=== PATIENT | male | born 1965 | race Caucasian/White ===

== ENCOUNTER 2024-03-18 11:29 | Emergency (ER) | payer OTHER ==
[2024-03-18] MEDS ORDERED: MORPHINE 4 MG/ML SYR ONE (11:56)
[2024-03-18] MEDS ORDERED: ONDANSETRON 4 MG/2 ML VIAL ONE (11:56)
[2024-03-18] MEDS ORDERED: NA CHLORIDE 0.9% 1,000 ML ONE (11:56)
[2024-03-18 12:00] LABS: Absolute Eosinophils 0.1 K/uL (0-0.5); Absolute Lymphocytes (CBC) 1.7 K/uL (0.7-4.9); Absolute Monocytes 0.3 K/uL (0.1-1.3); Absolute Neutrophil 2.6 K/uL (1.8-8.0); Eosinophils % 1.4 % (0-4.4); Hematocrit 40.9 % (39.6-49.0); Hemoglobin 13.5 g/dL (13.6-17.9); Lymphocytes % 36.4 % (15.3-44.8); MCH 30.6 pg (27.0-35.0); MCHC 33.1 g/dL (32.0-36.0); MCV 92.5 fL (80-100); MPV 8.2 fL (7.6-11.3); Monocytes % 6.2 % (3.3-12.3); Platelets 163 thou/uL (152-406); RBC Red Blood Cell Count 4.42 M/uL (4.33-5.43); Red Cell Distribution Width 14.5 % (12.1-15.2)
[2024-03-18 12:17] LABS: Albumin 3.5 g/dL (3.4-5.0); Albumin/Globulin Ratio 0.9 (1.1-1.8); Anion Gap 6.8 mEq/L (5.0-15.0); Bilirubin Total 0.5 mg/dL (0.2-1.0); Globulin 3.8 g/dL (2.3-3.5); Potassium 3.8 mEq/L (3.5-5.1); Protein, Total 7.3 g/dL (6.4-8.2)
[2024-03-18 12:34] LABS: Sqamous Epithelial None Seen /HPF (None Seen); Urine Bacteria None Seen /HPF (<20); Urine Bilirubin NEGATIVE (Negative); Urine Blood Negative (Negative); Urine Clarity Clear (Clear); Urine Color Colorless (Yellow); Urine Culture Reflex Order NOT NEEDED; Urine Glucose NEGATIVE (Negative); Urine Ketones NEGATIVE (Negative); Urine Microscopic Reflex YN ORDER UMIC; Urine Nitrite NEGATIVE (Negative); Urine Protein NEGATIVE (Negative); Urine RBC <5 /HPF (None Seen); Urine Urobilinogen Normal (Normal)
--- NOTE | 2024-03-18 12:46 | RAD REPORT ---
EXAM DESCRIPTION: CTAbdomen Pelvis W Contrast - 03/18/2024 12:34 pm CLINICAL HISTORY: Abdominal pain. ABD PAIN COMPARISON: No comparisons TECHNIQUE: CT imaging of the abdomen and pelvis was performed with 100 ml non-ionic IV contrast. All CT scans are performed using dose optimization technique as appropriate and may include automated exposure control or mA/KV adjustment according to patient size. FINDINGS: The lung bases are clear. The liver, spleen, pancreas, adrenal glands and kidneys are within normal limits. Gallstones. No bowel obstruction, free air, free fluid or abscess. Small left inguinal hernia containing soft tis robina. Significant stool retention throughout the colon. Moderate stool is present throughout the colon . The appendix is normal. No evidence of significant lymphadenopathy. No suspicious bony findings. IMPRESSION: Cholelithiasis. Small left inguinal hernia containing soft tissue. Moderate stool throughout the colon.
--- NOTE | 2024-03-18 13:42 | EDPHYS ---
Physician Documentation [facility] Name: Son Rosales Age: 58 yrs Sex: Male : 1965 Arrival Date: 03/18/2024 Time: 11:29 Bed 13 Private MD: ED Physician Jorge L Jerez HPI: 03/18 13:21 This 58 yrs old Male presents to ER via EMS with complaints of Groin Pain. berto 13:21 The patient presents with abdominal pain in the lower abdomen. Onset: The berto symptoms/episode began/occurred just prior to arrival. The symptoms do not radiate. Associated signs and symptoms: none. Modifying factors: The symptoms are alleviated by remaining still, supine position, the symptoms are aggravated by movement, walking, work stress. Severity of pain: At its worst the pain was moderate in the emergency department the pain has improved markedly. The patient has experienced similar episodes in the past, multiple times. Historical: - Allergies: 11:43 No Known Allergies; db - Home Meds: 11:43 Omeprazole Oral [Active]; db - PMHx: 11:43 Inguinal hernia; db - Immunization history:: Adult Immunizations unknown. - Infectious Disease History:: Denies. - Social history:: Smoking status: Patient denies any tobacco usage or history of. ROS: 13:36 Constitutional: Negative for fever, chills, and weight loss, Eyes: Negative for injury, berto pain, redness, and discharge, ENT: Negative for injury, pain, and discharge, Neck: Negative for injury, pain, and swelling, Cardiovascular: Negative for chest pain, palpitations, and edema, Respiratory: Negative for shortness of breath, cough, wheezing, and pleuritic chest pain, Back: Negative for injury and pain, : Negative for injury, bleeding, discharge, and swelling, MS/Extremity: Negative for injury and deformity, Skin: Negative for injury, rash, and discoloration, Neuro: Negative for headache, weakness, numbness, tingling, and seizure, Psych: Negative for depression, anxiety, suicide ideation, homicidal ideation, and hallucinations, Allergy/Immunology: Negative for hives, rash, and allergies, Endocrine: Negative for neck swelling, polydipsia, polyuria, polyphagia, and marked weight changes, Hematologic/Lymphatic: Negative for swollen nodes, abnormal bleeding, and unusual bruising, 13:36 Abdomen/GI: Positive for abdominal pain, of the left lower quadrant, Exam: 13:36 Constitutional: This is a well developed, well nourished patient who is awake, alert, berto and in no acute distress. Head/Face: Normocephalic, atraumatic. Eyes: Pupils equal round and reactive to light, extra-ocular motions intact. Lids and lashes normal. Conjunctiva and sclera are non-icteric and not injected. Cornea within normal limits. Periorbital areas with no swelling, redness, or edema. ENT: Nares patent. No nasal discharge, no septal abnormalities noted. Tympanic membranes are normal and external auditory canals are clear. Oropharynx with no redness, swelling, or masses, exudates, or evidence of obstruction, uvula midline. Mucous membranes moist. Neck: Trachea midline, no thyromegaly or masses palpated, and no cervical lymphadenopathy. Supple, full range of motion without nuchal rigidity, or vertebral point tenderness. No Meningismus. Chest/axilla: Normal chest wall appearance and motion. Nontender with no deformity. No lesions are appreciated. Cardiovascular: Regular rate and rhythm with a normal S1 and S2. No gallops, murmurs, or rubs. Normal PMI, no JVD. No pulse deficits. Respiratory: Lungs have equal breath sounds bilaterally, clear to auscultation and percussion. No rales, rhonchi or wheezes noted. No increased work of breathing, no retractions or nasal flaring. Back: No spinal tenderness. No costovertebral tenderness. Full range of motion. Male : Normal genitalia with no discharge or lesions. Skin: Warm, dry with normal turgor. Normal color with no rashes, no lesions, and no evidence of cellulitis. MS/ Extremity: Pulses equal, no cyanosis. Neurovascular intact. Full, normal range of motion. Neuro: Awake and alert, GCS 15, oriented to person, place, time, and situation. Cranial nerves II-XII grossly intact. Motor strength 5/5 in all extremities. Sensory grossly intact. Cerebellar exam normal. Normal gait. Psych: Awake, alert, with orientation to person, place and time. Behavior, mood, and affect are within normal limits. 13:36 Abdomen/GI: Inspection: abdomen appears normal, Bowel sounds: normal, Palpation: mild abdominal tenderness, in the left lower quadrant, Liver: no appreciated palpable abnormalities, Hernia: noted in the left inguinal area, Vital Signs: 11:30 BP 125 / 82; Pulse 64; Resp 16; Pulse Ox 99% ; db 11:39 BP 117 / 85; Pulse 50; Resp 16; Temp 98.4(O); Pulse Ox 100% ; Weight 64.86 kg; Height 6 db ft. 1 in. ; 13:00 BP 135 / 98; Pulse 60; Resp 16; Pulse Ox 97% on R/A; db 14:23 BP 122 / 80; Pulse 60; Resp 16; Pulse Ox 97% ; db 11:39 Body Mass Index 18.87 (64.86 kg, 185.42 cm) db MDM: 11:34 Patient medically screened. [facility] 13:38 Differential diagnosis: non-specific abd pain, urinary tract infection, LEFT INGUINAL berto HERNIA. Data reviewed: vital signs, nurses notes, lab test result(s), radiologic studies, CT scan. Consideration of Admission/Observation Escalation of care including admission/observation considered. I considered the following discharge prescriptions or medication management in the emergency department Medications were administered in the Emergency Department. See MAR. Independent interpretation of the following test(s) in the Emergency Department CT Scan: My interpretation is CT AB/PEL NEG. Test considered but Not performed: Ultrasound NO ABD USG. Care significantly affected by the following chronic conditions: INGUINAL HERNIA. 03/18 11:43 Order name: CBC with Diff; Complete Time: 13:11 [facility] 03/18 11:43 Order name: CMP; Complete Time: 13:11 [facility] 03/18 11:43 Order name: Lipase; Complete Time: 13:11 [facility] 03/18 11:43 Order name: Urinalysis w/ reflexes; Complete Time: 13:11 [facility] 03/18 11:43 Order name: CT Abd/Pelvis - IV Contrast Only; Complete Time: 13:11 [facility] 03/18 11:43 Order name: IV Saline Lock; Complete Time: 12:00 [facility] 03/18 11:43 Order name: Labs collected and sent; Complete Time: 12:00 [facility] Administered Medications: 11:55 Drug: NS 0.9% IV 1000 ml IV at 1 bolus Per protocol; 1000 mL bolus Route: IV; Rate: 1 db bolus; Site: right antecubital; 13:00 Follow up: Response: No adverse reaction; IV Status: Completed infusion; IV Intake: db 1000ml 11:55 Drug: Ondansetron IVP 4 mg IVP once; over 2 minutes Route: IVP; Site: right antecubital;db 12:30 Follow up: Response: No adverse reaction db 11:55 Drug: morphine IVP or IV 4 mg IVP once over 4 mins Route: IVP; Infused Over: 4 mins; db Site: right antecubital; 14:43 Follow up: Response: No adverse reaction db Disposition Summary: 03/18/24 13:41 Discharge Ordered Notes: Location: Home berto Problem: new berto Symptoms: have improved berto Condition: Fair berto Diagnosis - Unilateral inguinal hernia, without obstruction or gangrene - LEFT , REDUCED berto Followup: berto - With: Private Physician - When: 2 - 3 days - Reason: Recheck today's complaints, Continuance of care, Re-evaluation by your physician Followup: berto - With: Nasim De Luna MD - When: 2 - 3 days - Reason: Recheck today's complaints, Re-evaluation by your physician Discharge Instructions: - Discharge Summary Sheet berto - Hernia, Adult berto - Inguinal Hernia, Adult, [id number] berto - Hernia, Adult, [id number] berto - Inguinal Hernia, Adult berto Forms: - Medication Reconciliation Form berto - Antibiotic Education berto - Prescription Opioid Use berto - Patient Portal Instructions berto - Leadership Thank You Letter [facility] Signatures: Dispatcher [employer] Jorge L Mccartney MD MD cha Benton, Danielle, RN RN db
--- NOTE | 2024-03-18 13:42 | ER ---
Nurse's Notes [facility] Name: Son Rosales Age: 58 yrs Sex: Male : 1965 Arrival Date: 03/18/2024 Time: 11:29 Bed 13 Private MD: Diagnosis: Unilateral inguinal hernia, without obstruction or gangrene-LEFT , REDUCED Presentation: 03/18 11:39 Chief complaint: EMS states: PATIENT PICKED UP FROM [facility] IN CUSTODY WITH db GUARDS FOR LEFT LOWER ABD PAIN AND LEFT INGUINAL HERNIA PAIN. Coronavirus screen: Client denies travel out of the [place] in the last 14 days. At this time, the client does not indicate any symptoms associated with coronavirus-19. Ebola Screen: Patient negative for fever greater than or equal to 101.5 degrees Fahrenheit, and additional compatible Ebola Virus Disease symptoms Patient denies exposure to infectious person. Patient denies travel to an Ebola-affected area in the 21 days before illness onset. No symptoms or risks identified at this time. Initial Sepsis Screen: Does the patient meet any 2 criteria? No. Patient's initial sepsis screen is negative. Does the patient have a suspected source of infection? No. Patient's initial sepsis screen is negative. Risk Assessment: Do you want to hurt yourself or someone else? Patient reports no desire to harm self or others. Onset of symptoms was March 18, 2024. Care prior to arrival: IV initiated. 18 GA, in the right antecubital area. 11:39 Method Of Arrival: EMS: [facility] db 11:39 Acuity: MICHAEL 3 db Triage Assessment: 11:43 General: Appears in no apparent distress. comfortable, Behavior is calm, cooperative. db Pain: Complains of pain in abdomen and pelvis. Neuro: Level of Consciousness is awake, alert, obeys commands, Oriented to person, place, time, situation. GI: Abdomen is flat, non-distended, Abdomen is tender to palpation in left lower quadrant Reports lower abdominal pain. :. Historical: - Allergies: 11:43 No Known Allergies; db - Home Meds: 11:43 Omeprazole Oral [Active]; db - PMHx: 11:43 Inguinal hernia; db - Immunization history:: Adult Immunizations unknown. - Infectious Disease History:: Denies. - Social history:: Smoking status: Patient denies any tobacco usage or history of. Screenin:40 [facility] ED Fall Risk Assessment (Adult) History of falling in the last 3 months, db including since admission No falls in past 3 months (0 pts) Confusion or Disorientation No (0 pts) Intoxicated or Sedated No (0 pts) Impaired Gait No (0 pts) Mobility Assist Device Used No (0 pt) Altered Elimination No (0 pt) Score/Fall Risk Level 0 - 2 = Low Risk Oriented to surroundings, Maintained a safe environment. Abuse screen: Denies threats or abuse. Denies injuries from another. Nutritional screening: No deficits noted. Tuberculosis screening: No symptoms or risk factors identified. Assessment: 11:45 Reassessment: SEE TRIAGE FOR INITIAL ASSESSMENT. db 13:00 Reassessment: Patient appears in no apparent distress at this time. Patient and/or db family updated on plan of care and expected duration. Pain level reassessed. Patient is alert, oriented x 3, equal unlabored respirations, skin warm/dry/pink. Patient states feeling better. Patient states symptoms have improved. 14:30 Reassessment: Patient appears in no apparent distress at this time. Patient and/or db family updated on plan of care and expected duration. Pain level reassessed. Patient is alert, oriented x 3, equal unlabored respirations, skin warm/dry/pink. General: Appears in no apparent distress. comfortable, Behavior is calm, cooperative. Neuro: Level of Consciousness is awake, alert, obeys commands, Oriented to person, place, time, situation. Respiratory: Airway is patent Respiratory effort is even, unlabored, Respiratory pattern is regular, symmetrical. Vital Signs: 11:30 BP 125 / 82; Pulse 64; Resp 16; Pulse Ox 99% ; db 11:39 BP 117 / 85; Pulse 50; Resp 16; Temp 98.4(O); Pulse Ox 100% ; Weight 64.86 kg; Height 6 db ft. 1 in. ; 13:00 BP 135 / 98; Pulse 60; Resp 16; Pulse Ox 97% on R/A; db 14:23 BP 122 / 80; Pulse 60; Resp 16; Pulse Ox 97% ; db 11:39 Body Mass Index 18.87 (64.86 kg, 185.42 cm) ED Course: 11:30 Patient arrived in ED. iw 11:34 Jorge L Jerez MD is Attending Physician. berto 11:37 Park Blankenship, RN is Primary Nurse. db 11:43 Triage completed. db 11:43 Arm band placed on Patient placed in an exam room. db 11:48 Maintain EMS IV. Dressing intact. Good blood return noted. Site clean \T\ dry. Gauge \T\ db site: 18 G RAC. 12:36 CT Abd/Pelvis - IV Contrast Only In Process Unspecified. EDMS 13:40 Nasim De Luna MD is Referral Physician. berto 14:37 Patient has correct armband on for positive identification. Bed in low position. Call db light in reach. Side rails up X2. Pulse ox on. NIBP on. Warm blanket given. Pillow given. 14:37 No provider procedures requiring assistance completed. IV discontinued, intact, db bleeding controlled, No redness/swelling at site. Administered Medications: 11:55 Drug: NS 0.9% IV 1000 ml IV at 1 bolus Per protocol; 1000 mL bolus Route: IV; Rate: 1 db bolus; Site: right antecubital; 13:00 Follow up: Response: No adverse reaction; IV Status: Completed infusion; IV Intake: db 1000ml 11:55 Drug: Ondansetron IVP 4 mg IVP once; over 2 minutes Route: IVP; Site: right antecubital;db 12:30 Follow up: Response: No adverse reaction db 11:55 Drug: morphine IVP or IV 4 mg IVP once over 4 mins Route: IVP; Infused Over: 4 mins; db Site: right antecubital; 14:43 Follow up: Response: No adverse reaction db Medication: 14:40 VIS not applicable for this client. db Intake: 13:00 IV: 1000ml; Total: 1000ml. db Outcome: 13:41 Discharge ordered by . [facility] 14:37 Discharged to Law Enforcement db 14:37 Condition: stable 14:37 Discharge instructions given to patient, police, Instructed on discharge instructions, follow up and referral plans. 14:44 Patient left the ED. db Signatures: Dispatcher [employer] Jorge L Mccartney MD MD cha Williams, Irene, RN RN iw Park Blankenship, RN RN db
[2024-03-18 14:49] VITALS: TEMP 98.4
[2024-03-18 14:50] VITALS: O2SAT 97
[2024-03-18 14:51] VITALS: BP 122/80
== END 2024-03-18 14:44 | disposition home or self-care (01) ==
LOC: ER 11:29
DX: K40.90 Unilateral inguinal hernia, without obstruction or gangrene, not specified as recurrent (principal)
CPT/HCPCS: 96361; 85025; 81001; 36415; 83690; 80053; 74177; 96375; 96374; 99284; Q9967; J2405; J7030